=== PATIENT | male | born 1935 | race Caucasian/White ===

== ENCOUNTER → 2017-01-25 | Outpatient (CLI) | payer MEDICARE, OTHER ==
[~2017-01-25] MED LIST: ALPR-138 PO; ASPI81 PO; CALA180T PO; CLOP75 PO; PREG100 PO; ROSU5 PO
--- NOTE | 2017-01-29 10:38 | RADRPT ---
EXAM DATE/TIME: 01/25/2017 13:14 [facility] COMPARISON : No previous studies available for comparison. INDICATIONS : Consult for LEFT renal biopsy and cryo -ablation CT examination of the abdomen with and without contrast from [facility] dated January 04, 2017 reveals a 14 mm exophytic enhancing mass arising from the inferior aspect of th e left kidney which had shown growth since a comparison exam of July 2015. The lesion appears appr opriate for and amenable to percutaneous CT-guided biopsy with concomitant cryoablation treatment. Pr ocedure will be scheduled as requested. Ranulfo Milligan MD on January 29, 2017 at 10:33 Board Certified Radiologist. This report was verified electronically.
== END ==
LOC: HRAD 12:49
PROVIDERS: ATTEND Urology
DX: N28.89 Other specified disorders of kidney and ureter (principal)

== ENCOUNTER 2017-02-26 14:22 | Day surgery (SDC) | payer MEDICARE, OTHER ==
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
[2017-02-27] MEDS ORDERED: VERA40TA PO (08:02)
[2017-02-27] MEDS ORDERED: LYRI50CA PO (08:03)
[2017-02-27] MEDS ORDERED: LYRI100C PO (08:03)
[2017-02-27] MEDS ORDERED: XARE20TA PO (08:05)
[2017-02-27] MEDS ORDERED: ANDR1.62 TOPICAL (08:06)
[2017-02-27] MEDS ORDERED: ALPR.25 PO (08:07)
== END 2017-02-26 15:40 | disposition home or self-care (01) ==
LOC: HROP 14:22 → HRIP 14:25 → HROP 15:40
PROVIDERS: ATTEND Urology
DX: N28.89 Other specified disorders of kidney and ureter (principal); I48.91 Unspecified atrial fibrillation; N40.0 Benign prostatic hyperplasia without lower urinary tract symptoms; Z79.01 Long term (current) use of anticoagulants

== ENCOUNTER 2017-02-27 07:29 | Day surgery (SDC) | payer MEDICARE, OTHER ==
[~2017-02-27] VITALS: Ht 176.5 cm; Wt 72.3 kg
[2017-02-27 07:43] VITALS: BP 157/74; PULSE 72; RESP 18; TEMP 98; O2SAT 97
[2017-02-27] MEDS ORDERED: SODIUM CHLORID 0.9% 500 ML IV PRN (08:00)
[2017-02-27] MEDS ORDERED: LEVOFLOXACIN 500 MG PREMIX INJ 100 ML IV SCH (08:00)
[2017-02-27] MEDS ORDERED: SODIUM CHLOR 0.9% 1000 ML INJ 1,000 ML IV SCH (08:00)
[2017-02-27] MEDS ORDERED: CHLORHEXIDINE GLUCONATE 2 % 1 PACK (2 CLOTHS) TOPICAL PRN (08:00)
[2017-02-27] MEDS ORDERED: METOPROLOL TARTRATE 25 MG TAB PO PRN (08:00)
[2017-02-27] MEDS ORDERED: LACTATED RINGER'S 1000 ML IV PRN (08:00)
[2017-02-27] MEDS ORDERED: POVIDONE IODINE 5% (ANTISEPSIS KIT) 4 APPLICATIONS EACH NARE PRN (08:00)
[2017-02-27] MEDS ORDERED: INSULIN HUMAN REGULAR 1,000 UNITS/10 ML VIAL SQ PRN (08:00)
[2017-02-27] MEDS ORDERED: VERA40TA PO (08:02)
[2017-02-27] MEDS ORDERED: LYRI100C PO (08:03)
[2017-02-27] MEDS ORDERED: LYRI50CA PO (08:03)
[2017-02-27] MEDS ORDERED: XARE20TA PO (08:05)
[2017-02-27] MEDS ORDERED: ANDR1.62 TOPICAL (08:06)
[2017-02-27] MEDS ORDERED: ALPR.25 PO (08:07)
[2017-02-27 08:15] LABS: AUTOMATED NEUTROPHIL # 2.7 TH/MM3 (1.8-7.7); BASOPHIL # 0.1 TH/MM3 (0-0.2); EOSINOPHIL # 0.1 TH/MM3 (0-0.4); EOSINOPHIL % 2.5 % (0.0-4.0); HEMO FLAGS DIFF FINAL; LYMPHOCYTE # 2.4 TH/MM3 (1.0-4.8); MEAN CELL VOLUME 85.5 FL (80.0-100.0); MEAN CORPUSCULAR HGB CONC 32.8 % (32.0-36.0); MONO % 11.1 % (0.0-8.0); NEUT % 45.4 % (16.0-70.0); PLATELET COUNT 147 TH/MM3 (150-450); RED CELL DISTRIBUTION WIDTH 14.8 % (11.6-17.2); WHITE BLOOD COUNT 5.9 TH/MM3 (4.0-11.0)
[2017-02-27 08:28] LABS: APTT (PATIENT) 26.5 SEC (24.3-30.1); PROTHROMBIN TIME - PATIENT 10.7 SEC (9.8-11.6)
[2017-02-27 08:31] LABS: BICARBONATE 26.8 MEQ/L (21.0-32.0); POTASSIUM 4.1 MEQ/L (3.5-5.1)
[2017-02-27] MEDS ORDERED: LIDOCAINE 1%/EPINEPHrine 1:100,000 SOLN 20 ML VIAL ONE (09:52)
[2017-02-27] MEDS ORDERED: fentaNYL CITRATE 250 MCG/5 ML AMP ONE (10:09)
--- NOTE | 2017-02-27 13:13 | PD.RAD ---
Post CT Procedure Prog Note Pre Procedure Diagnosis: (1) Left renal mass Post Procedure Diagnosis: (1) Left renal mass Procedure Date: Feb 27, 2017 Supervising Radiologist: Ranulfo Milligan Anesthesia: General Plan of Activity Patient to Unit: PACU Patient Condition: Good See PACS Report for procedural detail/treatment Biopsy Side: Left Biopsy Procedure: Kidney Specimen: Core Biopsy Additional Detail: with cryoablation Ranulfo Milligan MD Feb 27, 2017 13:13
--- NOTE | 2017-02-27 13:22 | RADRPT ---
EXAM DATE/TIME: 02/27/2017 10:50 [facility] COMPARISON: No previous studies available for comparison. INDICATIONS : Left renal mass BIOPSY SITE: Left kidney Anesthesia and pain control was provided by the Anesthesia department. Prophylactic antibiotics were administered with appropriate pre-procedure timing. DEVICE(S): 1.) 18 gauge Temno core biopsy needle MEDICAL HISTORY : None. SURGICAL HISTORY : None. ENCOUNTER: Initial ACUITY: 1 day PAIN SCORE: 0/10 LOCATION: Left flank A total of one core specimen(s) were obtained and sent to the laboratory for pathologic evaluation. PROCEDURE: 1. CT guided renal biopsy. Prior to the procedure informed consent was obtained. Any appropriate prior imaging studies were rev iewed. Using automated exposure control and adjustment of the mA and/or kV according to patient size, radiat ion dose was kept as low as reasonably achievable to obtain optimal diagnostic quality images. DICOM format image data is available electronically for review and comparison. The site was prepped in a sterile fashion. Full sterile technique was used, including cap, mask, richy rile gloves and gown and a large sterile sheet. Hand hygiene and 2% chlorhexidine and/or betadine/al cohol prep was utilized per protocol for cutaneous antisepsis. The skin and subcutaneous tissues wer e infiltrated with local anesthetic solution. With CT guidance the previously identified target was localized. Biopsy was performed using the presc ribed needle as above. Adequate hemostasis was obtained with compression at the puncture site. Follow-up CT scan reveals no hemorrhage. The patient tolerated the procedure well and there were no complications. The patient subsequently un derwent cryoablation treatment of the mass. Please see that separate report for additional details. CONCLUSION: Uncomplicated CT guided core biopsy of left renal mass. Ranulfo Milligan MD on February 27, 2017 at 13:19 Board Certified Radiologist. This report was verified electronically.
--- NOTE | 2017-02-27 13:37 | RADRPT ---
EXAM DATE/TIME: 02/27/2017 10:50 INDICATIONS : Left renal mass Anesthesia and pain control was provided by the Anesthesia department. DEVICE(S): 1.) Adjustable V probe MEDICAL HISTORY : None. SURGICAL HISTORY : None. ENCOUNTER: Initial ACUITY: 1 day PAIN SCORE: 0/10 LOCATION: Left flank PROCEDURE : 1. CT guided cryoablation. Under sterile conditions and using aseptic technique with CT guidance the mass was localized and sati sfactory approach was taken to access the lesion. Using automated exposure control and adjustment of the mA and/or kV according to patient size, radiation dose was kept as low as reasonably achievable to obtain optimal diagnostic quality images. DICOM format image data is available electronically for review and comparison. [employer] Cryoprobes were employed using percutaneous technique employing the prescribed probes. A freeze-thaw, freeze-thaw technique was employed and serial imaging demonstrated an ice ball encomp assing the entire lesion. Post procedure images demonstrate expected postoperative changes without e vidence of hematoma. CONCLUSION: Uncomplicated cryoablation as above. Ranulfo Milligan MD on February 27, 2017 at 13:32 Board Certified Radiologist. This report was verified electronically.
[2017-02-27] MEDS ORDERED: HYDROmorphone HCL 2 MG TAB PO PRN (14:00)
[2017-02-27 14:09] LABS: AUTOMATED NEUTROPHIL # 7.3 TH/MM3 (1.8-7.7); BASOPHIL % 0.3 % (0.0-2.0); EOSINOPHIL % 0.1 % (0.0-4.0); HEMATOCRIT 44.1 % (39.0-51.0); HEMO FLAGS DIFF FINAL; LYMPH % 7.6 % (9.0-44.0); LYMPHOCYTE # 0.6 TH/MM3 (1.0-4.8); MEAN CELL VOLUME 85.3 FL (80.0-100.0); MEAN CORPUSCULAR HEMOGLOBIN 28.7 PG (27.0-34.0); MEAN CORPUSCULAR HGB CONC 33.7 % (32.0-36.0); MONO % 2.1 % (0.0-8.0); NEUT % 89.9 % (16.0-70.0); PLATELET COUNT 120 TH/MM3 (150-450); RED BLOOD COUNT 5.17 MIL/MM3 (4.50-5.90); RED CELL DISTRIBUTION WIDTH 14.7 % (11.6-17.2); WHITE BLOOD COUNT 8.1 TH/MM3 (4.0-11.0)
[2017-02-27 14:43] VITALS: BP 145/76; PULSE 78; RESP 16; TEMP 97.8; O2SAT 94
--- NOTE | 2017-02-27 14:58 | EKG ---
Date Performed: 02/27/2017 Time Performed: 08:05:01 PTAGE: 81 years EKG: ATRIAL FIBRILLATION RIGHT BUNDLE BRANCH BLOCK MODERATE T-WAVE ABNORMALITY, CONSIDER LATERAL ISCHEMIA MODERATE T-WAVE ABNORMALITY, CONSIDER INFERIOR ISCHEMIA ABNORMAL ECG PREVIOUS TRACING : 01/02/2008 09.57 DOCTOR: Tru Tom Interpretating Date/Time 02/27/2017 14:54:47
[2017-02-27] MEDS ORDERED: ACETAMINOPHEN 325 MG TAB PO ONE (15:00)
[2017-02-27] MEDS ORDERED: DO NOT ADM ANY ANTICOAGULANT DRUGS PRN (15:00)
[2017-02-27 15:15] VITALS: BP 140/74; PULSE 78; RESP 16; O2SAT 94
[2017-02-27 15:37] LABS: AUTOMATED NEUTROPHIL # 5.7 TH/MM3 (1.8-7.7); BASOPHIL % 0.3 % (0.0-2.0); HEMATOCRIT 43.4 % (39.0-51.0); HEMO FLAGS DIFF FINAL; LYMPH % 5.8 % (9.0-44.0); LYMPHOCYTE # 0.4 TH/MM3 (1.0-4.8); MEAN CELL VOLUME 85.9 FL (80.0-100.0); MEAN CORPUSCULAR HEMOGLOBIN 28.3 PG (27.0-34.0); MEAN CORPUSCULAR HGB CONC 32.9 % (32.0-36.0); MONO % 1.3 % (0.0-8.0); NEUT % 92.6 % (16.0-70.0); PLATELET COUNT 125 TH/MM3 (150-450); RED BLOOD COUNT 5.05 MIL/MM3 (4.50-5.90); RED CELL DISTRIBUTION WIDTH 14.9 % (11.6-17.2); WHITE BLOOD COUNT 6.2 TH/MM3 (4.0-11.0)
== END 2017-02-27 16:15 | disposition home or self-care (01) ==
LOC: HROP 07:29 → HRIP 07:34 → HROP 16:15
PROVIDERS: ATTEND Urology
DX: C64.2 Malignant neoplasm of left kidney, except renal pelvis (principal); R94.31 Abnormal electrocardiogram [ECG] [EKG]; Z01.810 Encounter for preprocedural cardiovascular examination
CPT/HCPCS: 50593; 77012; 77013; 80048; 85025; 85610; 85730; 88305; 93005; C2618; J3010; J7030

== ENCOUNTER 2017-03-02 13:32 | Day surgery (SDC) | payer MEDICARE, OTHER ==
[~2017-03-02 13:32] MED LIST changes: -ALPR-138 PO; +ALPR.25 PO; +ANDR1.62 TOPICAL; -ASPI81 PO; -CALA180T PO; -CLOP75 PO; +LYRI100C PO; +LYRI50CA PO; -PREG100 PO; -ROSU5 PO; +VERA40TA PO; +XARE20TA PO
--- NOTE | 2017-03-02 16:39 | RADRPT ---
EXAM DATE/TIME: 03/02/2017 00:00 [facility] COMPARISON : No previous studies available for comparison. INDICATIONS : F/U RENAL CRYOABLATION OBJECTIVE: Temperature: 98.7 Heart Rate: 81 Blood Pressure: 178/88 Respiratory: 17 Oximetry: 98 HISTORY OF PRESENT ILLNESS: The patient is status post biopsy and cryoablation treatment of a left renal mass performed February 27, 2017. The patient has done quite well. His postprocedure course has been uneventful. He has not had any flank pain or hematuria. Pathology indicates papillary renal carcinoma, nuclear grade I-II. PAST MEDICAL HISTORY : 1. A.FIB 2. PA 3. TRIGEMINAL NEURALGIA PAST SURGICAL HISTORY : 1. SHOILDER SURGERY SOCIAL HISTORY : Social alcohol use. none. ALLERGIES: 1. Penicillin MEDICATIONS: 1. XANAX 0.25 mg prn LYRICA 100 mg t.i.d. LYRICA 50 mg q.d. XARELTO 20 mg q.d. VERAPAMIL 240 mg q.d. TESTATERON TOPICAL PHYSICAL EXAMINATION: Lungs: Claar to auscultation. Puncture site: Clean and dry without swelling, erythema or hematoma. ASSESSMENT: The patient did well with renal biopsy and cryoablation. 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 PLAN: Followup contrasted CT of the abdomen, initially in 3 months. Ranulfo Milligan MD on March 02, 2017 at 16:32 Board Certified Radiologist. This report was verified electronically.
== END 2017-03-02 14:40 | disposition home or self-care (01) ==
LOC: HROP 13:32 → HRIP 13:36 → HROP 14:40
PROVIDERS: ATTEND Radiology Body Imaging
DX: C64.2 Malignant neoplasm of left kidney, except renal pelvis (principal); I48.91 Unspecified atrial fibrillation; I25.2 Old myocardial infarction; G50.0 Trigeminal neuralgia; Z79.01 Long term (current) use of anticoagulants; Z79.899 Other long term (current) drug therapy

== ENCOUNTER → 2017-05-30 | Outpatient (CLI) | payer MEDICARE, OTHER ==
--- NOTE | 2017-05-30 12:20 | RADRPT ---
EXAM DATE/TIME: 05/30/2017 09:04 INDICATIONS : Biopsy-proven left kidney low grade papillary carcinoma status post cryoablation treatment February 27, 2017. Patient underwent followup CT examination recently which demonstrated findings worrisome for re sidual or recurrent disease. ASSESSMENT: I reviewed the patient's CT examination from [facility]. This examination reveals central hypod ensity with a surrounding rim of enhancement at site of treated papillary carcinoma. The overall dime nsion of the enhancing rim is considerably larger than the previously treated mass. Since the biopsy did not indicate an aggressive malignancy of a type which would be expected to grow rapidly, I think it's quite unlikely that the imaging findings represent residual or recurrent neoplasm, rather more l ikely developing scar tissue at the periphery of the necrotic renal and perirenal tissue. RECOMMENDATION: Nevertheless, given that this is a somewhat atypical followup appearance, I would recommend short int erval followup with contrasted MRI in 3-4 months. Optimally, that study would be performed at [facility] so that I can have ready access to the raw data for more sophisticated postprocessing. Ranulfo Milligan MD on May 30, 2017 at 12:07 Board Certified Radiologist. This report was verified electronically.
== END ==
LOC: HRAD 08:40
PROVIDERS: ATTEND Urology
DX: N28.9 Disorder of kidney and ureter, unspecified (principal)